=== PATIENT | female | born 1990 | race African-American/Black ===

== ENCOUNTER 2018-07-04 21:45 | Emergency (ER) | payer OTHER ==
[~2018-07-04] VITALS: Ht 172.7 cm; Wt 83.0 kg
[2018-07-04 21:48] VITALS: BP 113/76
[2018-07-04 22:42] LABS: APPEARANCE,URINE CLOUDY; BILIRUBIN, URINE NEGATIVE (NEGATIVE); COLOR,URINE PALE YELLOW; GLUCOSE, URINE (UA) NEGATIVE (NEGATIVE); KETONES,URINE NEGATIVE (NEGATIVE); LEUKOCYTE ESTERASE ,URINE 1+ (NEGATIVE); NITRITE,URINE NEGATIVE (NEGATIVE); PH,URINE 5 (4.5-8.0); PROTEIN,URINE NEGATIVE (NEGATIVE); UROBILINOGEN,URINE NORMAL MG/DL (0.0-1.0)
--- NOTE | 2018-07-04 22:54 | Emergency Room Report ---
History of Present Illness General Chief Complaint: Lower Extremity Injury Source: Patient Present Illness HPI The patient presents after patient fell onto her left foot. She has pain and swelling on the foot. She is able to ambulate. Ankle is minimally tender. She took Tylenol before coming in. The pain is currently rated at 8/10, aching and throbbing and worse when she is ambulating and has a foot dependent. No fevers or chills. This happened a few hours before presentation to the emergency department. She denies prior injury and there is no numbness. last menses January Allergies: Coded Allergies: No Known Allergies (Unverified , 07/04/18) Patient History Past Medical History: see triage record Social History: Denies: smoking Social History Narrative Works at a rehab facility Last Menstrual Period: 01-10-2018 Now: No - dont know Nursing Documentation-[facility] Past Medical History: No Stated History Review of Systems Constitutional: Denies: fever Genitourinary: Reports: see HPI Musculoskeletal: Reports: see HPI Skin: Denies: rash Neurological: Reports: see HPI Physical Exam Vital Signs Date Time Temp Pulse Resp B/P (MAP) Pulse Ox O2 Delivery O2 Flow Rate FiO2 07/04/18 21:48 98.1 68 16 113/76 99 Room Air Sp02 EP Interpretation: reviewed, normal General Appearance: well appearing, no apparent distress Head: normocephalic, atraumatic Eyes: bilateral eye normal inspection, bilateral eye PERRL ENT: hearing grossly normal, normal voice, moist mucus membranes Neck: full range of motion, supple Respiratory: no respiratory distress, speaking full sentences Cardiovascular #2: 2+ dorsalis pedis (L) Musculoskeletal: no calf tenderness, swelling - Dorsum of foot, other - Ankle ligaments stable and no point tenderness fifth metatarsal or lateral malleolus Neurologic: alert, motor strength/tone normal, sensory intact Psychiatric: mood/affect normal Skin: no rash Medical Decision Making Diagnostic Impression: Primary Impression: Contusion of left foot Qualified Codes: S90.32XA - Contusion of left foot, initial encounter ER Course Patient presents after mechanical injury to her left foot. Differential includes contusion, sprain, strain versus fracture. Based on exam x-rays are not indicated at this time. Offered the patient Motrin however she refuses motrin due to worry about liver. Patient applied by me. Tension and position excellent some improvement in symptoms. Distal neurovascular checked by me and normal. Patient stable for outpatient observation and treatment. Laboratory Tests Test 07/04/18 22:26 Urine Color Pale yellow Urine Appearance Cloudy Urine pH 5 (4.5-8.0) Urine Specific Loda 1.020 (1.005-1.035) Urine Protein Negative (NEGATIVE) Urine Glucose (UA) Negative (NEGATIVE) Urine Ketones Negative (NEGATIVE) Urine Blood 2+ (NEGATIVE) H Urine Nitrite Negative (NEGATIVE) Urine Bilirubin Negative (NEGATIVE) Urine Urobilinogen Normal MG/DL (0.0-1.0) Urine Leukocyte Esterase 1+ (NEGATIVE) H Urine RBC Pending Urine WBC Pending Urine Squamous Epithelial Cells Pending Urine Bacteria Pending Urine HCG, Qualitative Negative (NEGATIVE) Last Vital Signs Date Time Temp Pulse Resp B/P (MAP) Pulse Ox O2 Delivery O2 Flow Rate FiO2 07/04/18 23:16 98.1 68 16 113/76 99 Room Air Status: improved Disposition: HOME, SELF-CARE Condition: Improved Scripts Acetaminophen (Tylenol) 325 Mg Tablet 650 MG ORAL Q6H PRN for Prn Pain/Headache/Temp > 101, #20 TAB 0 Refills Prov: Jones Siddiqui MD 07/04/18 Jones Siddiqui MD Jul 04, 2018 22:54
[2018-07-04] MEDS ORDERED: TYLENOL325 MG ORAL (22:56)
== END 2018-07-04 23:50 | disposition home or self-care (01) ==
LOC: EMR 22:30
DX: S90.32XA Contusion of left foot, initial encounter (principal); W19.XXXA Unspecified fall, initial encounter; Y92.238 Other place in hospital as the place of occurrence of the external cause; Y99.0 Civilian activity done for income or pay
CPT/HCPCS: 81003; 81025; 87086; 99283